=== PATIENT | female | born 1995 | race Caucasian/White ===

== ENCOUNTER 2017-06-10 23:13 | Emergency (ER) | payer OTHER ==
[~2017-06-10] VITALS: Ht 157.5 cm; Wt 67.4 kg
[~2017-06-10 23:13] MED LIST: EPP3/2 IM; MULT-240 PO; MULT-67 PO; SPR28 PO
[2017-06-10 23:17] VITALS: BP 134/85; PULSE 73; TEMP 36.8; O2SAT 98; Ht 157.5 cm; Wt 67.4 kg
[2017-06-10] MEDS ORDERED: AMOX500T3 PO (23:39)
--- NOTE | 2017-06-10 23:40 | EMERGENCY ROOM VISIT NOTE ---
History First contact with patient: 23:20 Chief Complaint: EAR PAIN Stated Complaint: PRESSURE,POPPING,RINGING IN LEFT EAR History of Present Illness The patient is a 22 year old female who presents to the Emergency Room with complaints of pressure and pain in her left ear. The patient reports that her symptoms started 3 hours prior to arrival. She states that the pain is a persistent pain and become sharp at times. She rates the discomfort as 6-7/10. She states the pain is better when she is sitting up and worse when she is lying down. She took 600 mg of ibuprofen without improvement of her pain. She reports she has a history of issues with her ears and has had a tympanic membrane rupture in the past. She denies any fevers, sore throat, cough or headache. She denies any recent trauma. Review of Systems A complete 10 point review of systems was reviewed with the patient with pertinent positives and negatives as per history of present illness. All else were negative. Past Medical/Surgical History Medical Problems: (1) Bee sting allergy Family History Diabetes mellitus Social History Smoking Status: Never Smoker Alcohol Use: none Drug Use: none Marital Status: single Housing Status: lives with family Occupation Status: student Current/Historical Medications Scheduled Amoxicillin (Amoxil), 500 MG PO TID Ethinyl Estrad/Norgestimate (Sprintec 28), 1 TAB PO DAILY Multiple Vitamins W/ Minerals (Womens One Daily), 1 TAB PO DAILY Multiple Vitamins W/ Minerals (Biotin Plus/Calcium/Vit D), 1 TAB PO DAILY Scheduled PRN Epinephrine (Epipen), 0.3 MG IM UD PRN for ALLERGIC REACTION Physical Exam Vital Signs Date Time Temp Pulse Resp B/P (MAP) Pulse Ox O2 Delivery O2 Flow Rate FiO2 18 23:17 36.8 73 18 134/85 98 Room Air Physical Exam VITALS: Vitals are noted on the nurse's note and reviewed by myself. Vital signs stable. GENERAL: This is a 22-year-old female, in no acute distress, nondiaphoretic, well-developed well-nourished. SKIN: The skin was without rashes. EARS: External auditory canals clear. The left tympanic membrane is erythematous and bulging with poor light reflex. The right tympanic membrane is within normal limits. EYES: Pupils equal round and reactive to light and accommodation. NOSE: Patent, turbinates without inflammation or discharge. MOUTH: Mucous membranes moist. Tonsils are not enlarged. Pharynx without erythema or exudate. NECK: Supple without nuchal rigidity. No lymphadenopathy. HEART: Regular rate and rhythm without murmurs gallops or rubs. LUNGS: Clear to auscultation bilaterally without wheezes, rales or rhonchi. No retractions or accessory muscle use. NEURO: Patient was alert and oriented to person place and time. Medical Decision & Procedures Medical Decision Differential diagnosis includes otitis media, otitis externa, perforated tympanic membrane, among others. The patient was evaluated as above. She has a left otitis media. She will be placed on amoxicillin. Conservative measures were discussed. She was instructed to take ibuprofen and Tylenol as needed for pain. She verbalized understanding of my assessment and treatment plan was discharged home in good condition. Medication Reconcilliation Current Medication List: was personally reviewed by me Blood Pressure Screening Patient's blood pressure: Normal blood pressure Impression Primary Impression: Otitis media Departure Information Dispostion Home / Self-Care Condition GOOD Prescriptions Amoxicillin (AMOXIL) 500 Mg Tab 500 MG PO TID for 10 Days, #30 TAB Prov: Katherine Edwards .TOMY 06/10/17 Referrals Jose C Mesa III, M.D. (PCP) Patient Instructions My [facility] Additional Instructions You have been treated in the Emergency Department for an Inner Ear Infection ( Otitis Media). You were prescribed amoxicillin to be taken 3 times daily for a total of 10 days. This is an antibiotic. All antibiotics have the potential to cause diarrhea. Stop this medication and contact a medical provider if you were to develop any significant adverse side effects including: wheezing, shortness of breath, passing out, vomiting, or a diffuse rash. Always take antibiotics as directed and COMPLETE the ENTIRE course regardless of the improvement of your symptoms. Be aware that this can make oral control pills less effective. You should use a backup control method while taking this medication. For pain and fever control, you can use the following rudy-svk-smyxjqx medicines (if >12 yo): - Regular strength (325mg/tab) Tylenol (acetaminophen) 2 tabs every 4-6 hours as needed. Do not exceed 12 tablets in a 24 hour period. Avoid taking more than 4 grams (4000 mg) of Tylenol per day. This includes any other sources of acetaminophen you may take on a regular basis. - Regular strength (200 mg/tab) Advil (ibuprofen) 1-2 tabs every 4-6 hours as needed. Do not exceed a dose of 3200 mg per day. You should follow-up with your Primary Care Provider from today's Emergency Department visit. Return to the emergency department if you develop the following symptoms despite treatment course outlined above: headache, fever, intractable pain, increased redness, swelling, or purulent discharge. Problem Qualifiers Primary Impression: Otitis media Otitis media type: unspecified Chronicity: acute Qualified Codes: H66.90 - Otitis media, unspecified, unspecified ear
[2017-06-10] MEDS ORDERED: AMOXICILLIN HOME PACK 250 MG/TAB PO ONE (23:45)
== END 2017-06-10 23:50 | disposition home or self-care (01) ==
LOC: C.EDB 23:15 → C.EDC 23:50
DX: H66.92 Otitis media, unspecified, left ear (principal); Z86.69 Personal history of other diseases of the nervous system and sense organs; Z79.3 Long term (current) use of hormonal contraceptives; Z91.030 Bee allergy status; Z83.3 Family history of diabetes mellitus

== ENCOUNTER 2022-07-10 12:46 | Inpatient (IN) ==
--- NOTE | 2022-07-10 13:17 | History & Physical Report ---
Date of Service July 10, 2022 Assessment & Plan (1) 39 weeks gestation of : (2) Elevated BP without diagnosis of hypertension: Plan initial bp here is normal. will obtain nst and labs and recheck bp in appropriate manner. pt aware. denies questions History of Present Illness Chief Complaint: evaluation of bp Primary Care Provider: Cassy Lenz MD 27yo at 39+wks keyon presents from office to L&D with elevated bps in office. 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 Initial bp 160s/80s and repeat after sitting 150s/80s. Negative protein. Denies casas or visual change. No ruq pain. No nausea/vomiting. No significant swelling. Sent from office here for further evaluation. PNC complicated by anemia PNL rh pos, ri, gbs neg Allergies Allergy/AdvReac Type Severity Reaction Status Date / Time bee venom protein (honey bee) Allergy Severe ANAPHYLAXIS Verified 07/10/22 11:42 Home Medications Medication Instructions Recorded Confirmed Type prenat.vits,sky,yxk-vgtg-ewkpp 1 tab PO DAILY 12/08/21 07/10/22 History promethazine 25 mg tablet 25 mg PO Q6H PRN nausea and 01/04/22 07/10/22 Rx vomiting #14 tabs ferrous sulfate 325 mg (65 mg 325 mg PO DAILY 05/23/22 07/10/22 History iron) tablet valacyclovir 500 mg tablet 500 mg PO BID #60 tabs 05/29/22 07/10/22 Rx (Valtrex) Patient History Surgical History (Updated 12/08/21 @ 10:08 by Magda Puente) H/O wisdom tooth extraction Family History Grandfather Diabetes Asthma A-fib Father Dyslipidemia Mother Hx of blood clots Social History (Updated 05/23/22 @ 10:51 by Ainsley Vicente LPN) Smoking Status: Current every day smoker Tobacco Type: E-cigarettes / Vaping Second Hand Exposure: No; Hx Alcohol Use: No Hx Substance Use: No Preferred Language: Syriac marital status: Single marital status details: Octavio (22) [phone] Current Living Situation: Significant Other Current Living Situation Comment: lives with fob and 1 dog current occupational status: employed 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 Feels Safe at Home: Yes Safety Concerns: Feels Safe At This Time caffeine: Yes Dental Care, Regularly: Yes Seatbelt Use: always Sunscreen Use: Yes Assistive Devices: Glasses Review of Systems as per Subjective / HPI Physical Exam Constitutional: WD/WN, vitals as above Gastrointestinal (Abdomen): soft gravid nt no ruq or epig tenderness Musculoskeletal: tr edema Neurologic: grossly normal dtrs +1 no clonus Psychiatric: A+Ox3, euthymic affect Genitourinary: OB Exam Monitor Tracing: + external FHT monitor used, + external uterine monitor used (irregular), + category I and + normal FHT variability Results & Data Vital Signs (Past 12 Hours) Vital Signs Pulse BP 07/10/22 13:04 95 H 131/73 Coding Level of Care Code None Diagnoses 39 weeks gestation of Z3A.39 Elevated BP without diagnosis of hypertension R03.0
[2022-07-10 14:48] LABS: Alanine Aminotransferase 12 U/L (7-52); Albumin Globulin Ratio 1.5 (0.9-2); Albumin Level 3.7 gm/dl (3.4-5.0); Alkaline Phosphatase 103 U/L (34-104); Anion Gap 8 (3-11); Aspartate Aminotransferase 19 U/L (13-39); BUN Creatinine Ratio 15.4 (10-20); Basophils # (auto) 0.02 K/uL (0-0.2); Basophils % (auto) 0.3 %; Bilirubin,Total 0.2 mg/dl (0.2-1.0); Blood Urea Nitrogen 8 mg/dl (6-23); Calcium 9.3 mg/dl (8.6-10.3); Carbon Dioxide 22 mmol/L (21-32); Chloride 107 mmol/L (98-107); Creatinine Clr Calc Pharmacy 155.7 ml/min; Eosinophils # (auto) 0.03 K/uL (0-0.50); Eosinophils % (auto) 0.4 %; Est GFR (African American) > 150.0 ml/min; Est GFR (Non-African American) 132.8 ml/min; Globulin 2.5 gm/dl (2.5-4.0); Glucose 77 mg/dl (70-99(Fasting)); Hematocrit (blood only) 29.1 % (37.0-47.0); Immature Granulocytes # (auto) 0.03 K/uL (0.01-0.20); Immature Granulocytes % (auto) 0.4 %; Lymphocytes # (auto) 1.89 K/uL (1.2-3.4); Lymphocytes % (auto) 24.1 %; Mean Corpuscular Hemoglobin 30.9 pg (25.0-34.0); Mean Corpuscular Hgb Conc 34.4 g/dL (32.0-36.0); Mean Corpuscular Volume 89.8 fL (80.0-100.0); Mean Platelet Volume 11.1 fL (9.4-12.4); Monocytes # (auto) 0.82 K/uL (0.11-0.59); Monocytes % (auto) 10.5 %; Neutrophils # (auto) 5.05 K/uL (1.40-6.50); Neutrophils % (auto) 64.3 %; Platelet Count 229 K/uL (130-400); Potassium 4.1 mmol/L (3.5-5.1); RDW Coefficient of Variation 13.9 % (11.5-14.5); RDW Standard Deviation 45.5 fL (36.4-46.3); Red Blood Count 3.24 M/uL (4.20-5.40); Sodium 137 mmol/L (136-145); Total Protein 6.2 gm/dl (6.0-8.3); White Blood Count 7.84 K/ul (4.8-10.8)
[2022-07-10] MEDS ORDERED: LIDOCAINE 1% LOCAL 20 ML VIAL INFIL PRN (16:36)
[2022-07-10] MEDS ORDERED: OXYTOCIN 30 UNITS/500 ML BAG IV PRN ×2 (16:36)
[2022-07-10] MEDS: LACTATED RINGER'S 1,000 ML IV PRN (18:11)
--- NOTE | 2022-07-10 18:57 | Labor Progress Brief Note ---
Date of Service July 10, 2022 Subjective pt continues to deny any symptoms but bp elevated on 2nd reading, meeting criteria for gest htn and offered induction. she is ready to proceed. Assessment & Plan (1) Gestational hypertension: (2) 39 weeks gestation of : (3) Encounter for induction of labor: (4) Anemia: Plan: due to starting hgb, opted to T&S pt. Plan admit, iv. labs already done and reviewed. begin pitocin and shaffer placed. questions answered, pt desires to proceed. Admission and Anticipated Discharge Date Admission Date: July 10, 2022 Physical Exam Constitutional: WD/WN, vitals as above Respiratory: normal respiratory effort, lungs clear to auscultation Cardiovascular: Rate/Rhythm: regular rate and regular rhythm Gastrointestinal (Abdomen): soft gravid nt fw 7-8# Neurologic: grossly normal Psychiatric: A+Ox3, euthymic affect Genitourinary: Manual OB Exam: + cervical dilation 1 cm, + cervical effacement 50% and + station (per TEACHER VOCAL today in office. ) -2 OB Exam Monitor Tracing: + external FHT monitor used, + external uterine monitor used, + category I and + normal FHT variability PROCEDURE: sse cx visualized, grasped on ant lip with ring forcep, shaffer through os and balloon inflated with 40cc sterile water. Spec removed, shaffer taped to leg. pt tila well. Results & Data Vital Signs (Past 12 Hours) Vital Signs Temp Pulse Resp BP 07/10/22 13:15 20 07/10/22 18:36 98 H 07/10/22 18:36 135/86 07/10/22 15:57 85 142/83 H 07/10/22 13:30 98.6 F 07/10/22 13:04 95 H 131/73 Coding Level of Care Code None Diagnoses Gestational hypertension O13.9 39 weeks gestation of Z3A.39 Encounter for induction of labor Z34.90 Anemia D64.9 CPT Codes Misx Procedure Codes - 40370 Placement of cervical dilator: 16096 Placement of cervical dilator ([id number]) FILM LIBRARY CLERK Miscellaneous Codes Misx Procedure Codes 22956 Placement of cervical dilator
[2022-07-10] MEDS ORDERED: SODIUM CHLORIDE 0.9% 250 ML IV PRN (19:23)
--- NOTE | 2022-07-11 00:16 | Labor Progress Brief Note ---
Date of Service July 11, 2022 Subjective more pain with ctx. Assessment & Plan (1) 39 weeks gestation of : (2) Gestational hypertension: (3) Encounter for induction of labor: Plan good cx change. see how arom helps her labor. fhts categ 1. c/w pit. Admission and Anticipated Discharge Date Admission Date: July 10, 2022 Physical Exam Constitutional: WD/WN, vitals as above Genitourinary: OB Exam Abdomen: + vertex (by u/s) Manual OB Exam: + cervical dilation 6 cm, + cervical effacement 80%, + station -2 and + amniotic fluid (arom) clear OB Exam Monitor Tracing: + external FHT monitor used, + external uterine monitor used (q2 pit at 19), + category I and + normal FHT variability Results & Data Vital Signs (Past 12 Hours) Vital Signs Temp Pulse Resp BP O2 Del Method 07/10/22 19:05 Room Air 07/10/22 13:15 20 07/10/22 23:57 77 07/10/22 23:57 135/85 07/10/22 22:56 20 07/10/22 22:56 98.4 F 20 07/10/22 22:56 81 07/10/22 22:56 130/71 07/10/22 22:16 79 07/10/22 22:16 132/69 07/10/22 21:10 85 07/10/22 21:10 139/83 07/10/22 20:05 90 07/10/22 20:05 137/81 07/10/22 19:00 20 07/10/22 19:00 98.8 F 20 07/10/22 18:56 87 07/10/22 18:56 144/83 H 07/10/22 18:36 98 H 07/10/22 18:36 135/86 07/10/22 15:57 85 142/83 H 07/10/22 13:30 98.6 F 07/10/22 13:04 95 H 131/73 Coding Level of Care Code None Diagnoses 39 weeks gestation of Z3A.39 Gestational hypertension O13.9 Encounter for induction of labor Z34.90
[2022-07-11] MEDS ORDERED: SODIUM CHLORIDE 0.9% PF INJ 10 ML VIAL ONE (00:31)
[2022-07-11] MEDS ORDERED: fentaNYL citrate PF 100 MCG/2 ML VIAL ONE (00:31)
[2022-07-11] MEDS ORDERED: ePHEDrine sulfate 50 MG/ML AMP ONE (00:31)
[2022-07-11] MEDS ORDERED: BUPIVACAINE 0.25% PF 30 ML VIAL ONE (00:31)
[2022-07-11] MEDS ORDERED: LIDOCAINE 2%/EPINEPHRINE 1:200,000 20 ML PF ONE (00:31)
[2022-07-11] MEDS ORDERED: fentaNYL 2MCG/ML ROPIVACAINE 1.25MG/ML 100 ML BAG EPI ONE (00:32)
[2022-07-11] MEDS: LACTATED RINGER'S 1,000 ML IV PRN (00:41)
[2022-07-11] MEDS ORDERED: diphenhydrAMINE 50 MG/ML VIAL IV PRN (00:58)
[2022-07-11] MEDS ORDERED: ONDANSETRON INJ 2 MG/ML 2 ML VIAL IV PRN (00:58)
[2022-07-11] MEDS ORDERED: NALOXONE HCL 0.4 MG/1 ML VIAL/CARP IV PRN (00:58)
[2022-07-11] MEDS ORDERED: fentaNYL 2MCG/ML ROPIVACAINE 1.25MG/ML 100 ML BAG EPI PRN (00:58)
[2022-07-11] MEDS ORDERED: NALBUPHINE HCL INJ 10 MG/ML AMP IV PRN (00:58)
[2022-07-11] MEDS ORDERED: ePHEDrine sulfate 50 MG/ML AMP IV PRN (00:58)
[2022-07-11] MEDS ORDERED: NALOXONE HCL 1 MG in SODIUM CHLORIDE 0.9% 1000ML 1,000 ML IV PRN (00:58)
--- NOTE | 2022-07-11 00:58 | Anesthesiology Consultation ---
Date of Service July 11, 2022 Assessment & Plan ASA ASA2 Proposed Anesthesia Anesthesia Type: Labor Epidural Risk / Benefits Reviewed With: PT / POA / Parent / Guardian, Accepts Plan and Informed Consent Obtained History Height/Weight Height: 5 ft 2 in Weight: 73.936 kg Allergies Allergy/AdvReac Type Severity Reaction Status Date / Time bee venom protein (honey bee) Allergy Severe ANAPHYLAXIS Verified 07/10/22 11:42 Medications Home Medications Medication Instructions Recorded Confirmed Last Taken prenat.vits,sky,gwx-gynf-oqdyt 1 tab PO DAILY 12/08/21 07/10/22 07/10/22 promethazine 25 mg tablet 25 mg PO Q6H PRN nausea and 01/04/22 07/10/22 07/10/22 vomiting #14 tabs ferrous sulfate 325 mg (65 mg 325 mg PO DAILY 05/23/22 07/10/22 07/10/22 iron) tablet valacyclovir 500 mg tablet 500 mg PO BID #60 tabs 05/29/22 07/10/22 07/10/22 (Valtrex) Exercise / Class Metabolic Activity II 4-5 Yardwork/Stairs/Walk up hill Past Family History Family History Grandfather Diabetes Asthma A-fib Father Dyslipidemia Mother Hx of blood clots Past Surgical History Surgical History H/O wisdom tooth extraction Past Anesthesia History No Hx of Anesthesia Complications and No Family Hx of Anesthesia Complications History of PONV No Hx of PONV and No Hx of Motion Sickness Social History Smoking Status: Current every day smoker tobacco type: e-cigarettes Hx Alcohol Use: No Hx Substance Use: No Review of Systems denies fever/cough/ colds/ chest pain/ SOB/ DAMIAN denies DAMIAN Physical Exam Vital Signs Last Vital Signs Temp 36.9 C 07/11/22 02:23 Pulse 94 H 07/11/22 05:42 Resp 18 07/11/22 05:15 BP 136/65 07/11/22 05:42 Pulse Ox 98 07/11/22 03:41 O2 Del Method Room Air 07/10/22 19:05 ENMT Mouth: no TMJ abnormality and no dentition abnormality Thyromental Distance: > or= 3.5 Finger Breadths Mallampati Class: II Neck neck extension not limited Respiratory normal respiratory effort; no respiratory distress Auscultation: lungs clear to auscultation bilaterally Cardiovascular Rate/Rhythm: regular rate and regular rhythm Neurologic moves all extremities Psychiatric Orientation: alert and oriented x 3 Testing Laboratory Results 07/10/22 13:54 07/10/22 13:54 Blood Type A Positive 07/10/22 16:36 Antibody Screen NEGATIVE 07/10/22 16:36
--- NOTE | 2022-07-11 03:46 | Delivery Summary ---
Vaginal Delivery Summary Date of Service July 11, 2022 Vaginal Delivery Summary and 2nd Degree LAC The patient dilated to complete and pushed to deliver a viable female infant Apgars 8 and 9 via over 2nd degree perineal laceration. Mouth and nose bulb suctioned at perineum. Shoulders and body delivered with ease. Infant was vigorous and crying at . Cord clamped at 30 seconds of life and infant to maternal abdomen where the cord was then doubly clamped and cut. Placenta delivered spontaneously and intact, three-vessel cord. Hemostasis achieved with dilute pitocin and uterine massage and drainage of the bladder for approximately 50 cc under sterile conditions. Laceration repaired in layers with 3-0 vicryl. Cervix and sulci intact. EBL 300 cc. Mother and baby stable in recovery. [facility] [place] Vaginal Delivery Charge Delivery Type Details: and 2nd Degree LAC
[2022-07-11] MEDS ORDERED: OXYTOCIN 30 UNITS/500 ML BAG IV PRN (04:38)
[2022-07-11] MEDS ORDERED: BENZOCAINE 20% AER SPR 82.5 GM CAN EXT PRN (04:38)
[2022-07-11] MEDS ORDERED: DIPHTHERIA/TETANUS/PERTUSSIS 0.5mL SYR/VIAL (Age 7+yrs) IM ONE (04:38)
[2022-07-11] MEDS ORDERED: HYDROCORTISONE ACETATE 25 MG SUPP PR PRN (04:38)
[2022-07-11] MEDS ORDERED: bisacodyL 10 MG SUPP PR PRN (04:38)
[2022-07-11] MEDS ORDERED: oxyCODONE/ACETAMINOPHEN 5mg/325mg TAB PO PRN (04:38)
[2022-07-11] MEDS ORDERED: ACETAMINOPHEN 325 MG TAB PO PRN (04:38)
--- NOTE | 2022-07-11 05:51 | Anesthesia Procedure Note ---
Date of Service July 11, 2022 Anesthesia Post Epidural Note Vital Signs Vital Signs: Temp Pulse Resp BP Pulse Ox O2 Del Method 36.9 C 94 H 18 136/65 98 Room Air 07/11/22 02:23 07/11/22 05:42 07/11/22 05:15 07/11/22 05:42 07/11/22 03:41 07/10/22 19:05 Pain Intensity Abdomen: Pain Intensity: 0 Notes Mental Status: alert / awake / arousable and participated in evaluation Nausea / Vomiting: adequately controlled Pain: adequately controlled Airway Patency, RR, SpO2: stable & adequate BP & HR: stable & adequate Hydration State: stable & adequate Neuraxial Anesthesia: was administered and sensory block is resolving Anesthetic Complications: no major complications apparent and Pt Satisfied with anesthetic care Epidural: Removed without complications and With tip intact
[2022-07-11] MEDS: DOCUSATE SODIUM 100 MG CAP PO SCH (08:16)
[2022-07-11] MEDS: PRENATAL VITAMIN 1 TAB PO SCH (08:16)
[2022-07-11] MEDS: OXYTOCIN 20 UNITS in LACTATED RINGER'S 1,000 ML IV SCH (09:05)
[2022-07-11] MEDS: IBUPROFEN 600 MG TAB PO PRN ×2 (10:21→20:36)
[2022-07-12] MEDS: IBUPROFEN 600 MG TAB PO PRN ×5 (00:40→23:06)
[2022-07-12] MEDS: DOCUSATE SODIUM 100 MG CAP PO SCH ×3 (00:41→20:58)
--- NOTE | 2022-07-12 05:48 | Obstetrical Progress Note ---
Date of Service July 12, 2022 Assessment & Plan (1) Encounter for induction of labor: (2) Gestational hypertension: (3) 39 weeks gestation of : (4) Anemia: Plan Zahida is a 27 yo who is PPD#1 following at 39w. -Meeting all milestones -Vitals reviewed and WNL, hemoglobin stable -A+/GBS negative/Rubella immune -Follow up in 6 weeks for appointment -Continue routine care Admission and Anticipated Discharge Date Admission Date: July 10, 2022 Supervising Physician Co-Signing Physician Notes Resident Physician Supervision Note: I interviewed and examined the patient. Discussed with Dr. Carlos and agree with findings and plan as documented in the note. Any exceptions or clarifications are listed here: Doing well ppd#1+. Desires d/c later today. Instructions given. Documented By: Clotilde Barriga MD, FACOG Subjective Zahida is a 27 y/o female who is PPD #1 following delivery at 39 weeks. She reports feeling well overall this morning. Some abdominal cramping & 7/10 pain at highest- but well managed on analgesics. Voiding without issue. Tolerating meals overnight and able to ambulate some. Has some persistent lochia with some improvement this morning. Currently breast feeding. Review of Systems Constitutional: no fever, no chills and no sweats Respiratory: no cough, no dyspnea and no wheezing Cardiovascular: no chest pain, no palpitations and no calf pain Genitourinary: no dysuria Neurologic: no headache(s) Physical Exam Constitutional: WD/WN, vitals as above no acute distress Respiratory: no respiratory distress Auscultation: lungs clear to auscultation bilaterally; no rales, no rhonchi and no wheezes Cardiovascular: RRR, no murmur, no edema Extremities: no calf tenderness and no edema Negative Samantha's sign bilaterally. Gastrointestinal (Abdomen): Inspection/Auscultation: normal bowel sounds Genitourinary: Uterine fundus firm, palpable below the umbilicus. Results & Data Vital Signs (Past 12 Hours) Vital Signs Temp Pulse Resp BP Pulse Ox O2 Del Method 07/12/22 03:59 36.8 C 95 H 16 134/76 99 Room Air 07/11/22 22:30 36.8 C 97 H 18 136/79 99 Room Air Resident Activity Tracking Resident Involvement: Resident Care Provided Care Provided: OB Delivery
[2022-07-12 07:17] LABS: Hematocrit (blood only) 22.9 % (37.0-47.0); Hemoglobin 7.5 g/dl (12.0-16.0)
[2022-07-12] MEDS: PRENATAL VITAMIN 1 TAB PO SCH (09:12)
[2022-07-12] MEDS: OXYTOCIN 20 UNITS in LACTATED RINGER'S 1,000 ML IV SCH (20:16)
[2022-07-13] MEDS: IBUPROFEN 600 MG TAB PO PRN ×2 (04:13→11:31)
[2022-07-13] MEDS: OXYTOCIN 20 UNITS in LACTATED RINGER'S 1,000 ML IV SCH (04:57)
--- NOTE | 2022-07-13 07:26 | Obstetrical Progress Note ---
Date of Service July 13, 2022 Assessment & Plan (1) Encounter for induction of labor: (2) Gestational hypertension: (3) 39 weeks gestation of : (4) Anemia: Plan Zahida is a 27 yo who is PPD#2 following at 39w. -Meeting all milestones -Vitals reviewed and WNL, Hemoglobin at 7.5 yesterday but asymptomatics. -A+/GBS negative/Rubella immune -Follow up in 6 weeks for appointment -Continue routine care -Plan for d/c today Admission and Anticipated Discharge Date Admission Date: July 10, 2022 Supervising Physician Co-Signing Physician Notes patient seen and evaluated with resident and agree with the above findings and plan. Routine OB care. Stable for discharge. Subjective Zahida is a 27 y/o female who is PPD #1 following delivery at 39 weeks. She reports feeling well overall this morning. Some abdominal cramping but well managed on analgesics. Voiding without issue. Tolerating meals overnight and able to ambulate some. Has some persistent lochia with some improvement this morning. Currently breast feeding. Denies dizziness or weakness. Review of Systems Constitutional: no fever, no chills and no sweats Respiratory: no cough, no dyspnea and no wheezing Cardiovascular: no chest pain, no palpitations and no calf pain Genitourinary: no dysuria Neurologic: no headache(s) Physical Exam Constitutional: WD/WN, vitals as above no acute distress Respiratory: no respiratory distress Auscultation: lungs clear to auscultation bilaterally; no rales, no rhonchi and no wheezes Cardiovascular: RRR, no murmur, no edema Extremities: no calf tenderness and no edema Gastrointestinal (Abdomen): Inspection/Auscultation: normal bowel sounds Skin: no rashes, warm and dry Genitourinary: Uterine fundus palpable below umbilicus Results & Data Vital Signs (Past 12 Hours) Vital Signs Temp Pulse Resp BP O2 Del Method 07/12/22 23:00 36.9 C 91 H 18 130/81 Room Air Resident Activity Tracking Resident Involvement: Resident Care Provided Care Provided: OB Delivery
[2022-07-13] MEDS: DOCUSATE SODIUM 100 MG CAP PO SCH (08:37)
[2022-07-13] MEDS: PRENATAL VITAMIN 1 TAB PO SCH (08:37)
== END 2022-07-13 12:05 | disposition home or self-care (01) | DRG 807 ==
LOC: OPB 12:46 → 4S1 12:49 → 4E2 07-11 08:04